=== PATIENT | male | born 1990 | race Caucasian/White ===

== ENCOUNTER 2018-10-21 15:25 | Emergency (ER) | payer MEDICAID ==
[~2018-10-21] VITALS: Ht 193 cm; Wt 86.4 kg
[2018-10-21 15:46] VITALS: BP 112/79
[2018-10-21] MEDS ORDERED: zinc oxide ointment 30gm tube TP STA (16:05)
[2018-10-21] MEDS ORDERED: [UNRECOGNIZED DRUG - CODE] TOP (16:10)
== END 2018-10-21 16:48 | disposition home or self-care (01) ==
LOC: ER 15:26
DX: S31.20XA Unspecified open wound of penis, initial encounter (principal); F12.90 Cannabis use, unspecified, uncomplicated; F15.90 Other stimulant use, unspecified, uncomplicated; Z59.0 Homelessness; Z88.0 Allergy status to penicillin; Z88.1 Allergy status to other antibiotic agents; Z88.6 Allergy status to analgesic agent; Z79.899 Other long term (current) drug therapy; Z56.0 Unemployment, unspecified; X58.XXXA Exposure to other specified factors, initial encounter; Y93.89 Activity, other specified; Y92.89 Other specified places as the place of occurrence of the external cause; Y99.8 Other external cause status
CPT/HCPCS: 99282